=== PATIENT | female | born 1965 | race Caucasian/White ===

== ENCOUNTER 2017-02-14 04:15 | Inpatient (IN) | payer OTHER ==
[~2017-02-14] VITALS: Ht 172.7 cm; Wt 71.2 kg
[2017-02-14] MEDS ORDERED: MIRALAX17 G1 PO (12:40)
[2017-02-14] MEDS ORDERED: ASPIRIN EC325 M2 PO (12:40)
[2017-02-14] MEDS ORDERED: PRILOSEC OTC20 M1 PO (12:40)
[2017-02-14] MEDS ORDERED: MS CONTIN15 M2 PO (12:40)
[2017-02-14] MEDS ORDERED: DILAUDID2 M1 PO (12:40)
[2017-02-14] MEDS ORDERED: COLACE100 M1 PO (12:40)
--- NOTE | 2017-02-14 12:44 | Patient Discharge Instructions ---
Discharge Instructions General Discharge Information You were seen/treated for: Right hip pain You had these procedures: Right total hip replacement Watch for these problems: Increasing pain, redness, warmth, swelling. Drainage of any type from incision. Inability to bear weight on right leg. Fever greater than 101.5. Do not soak the wound: Yes No bath, but you may shower: Yes Other wound care: Wound clean and dry Special Instructions: Incision: Dry dressing. May shower. No baths. No ointments of any kind. Ice as needed. Bowel regimen: Colace and or MiraLAX Weight-bearing as tolerated Follow-up with Dr. Sheehan in 6 weeks. Call office for fevers greater than 101.5, excessive drainage or inability to bear weight on operative extremity. Visiting nurse will change dressing. Diet Continue normal diet: Yes Recommended Diet: Regular Additional DIET Information: Weight-bear as tolerated Activity Full Activity/No Limits: No Activity Self Limited: Yes Pounds, do NOT lift more than: 10 Additional ACTIVITY Info: Weight-bear as tolerated Acute Coronary Syndrome Inclusion Criteria At DC or during hospital stay patient has or had the following: ACS DIAGNOSIS No Discharge Core Measures Meds if any: Prescribed or Continued at Discharge Meds if any: NOT Prescribed or Continued at Discharge Congestive Heart Failure Inclusion Criteria At DC or during hospital stay patient has or had the following: CHF DIAGNOSIS No Discharge Core Measures Meds if any: Prescribed or Continued at Discharge Meds if any: NOT Prescribed or Continued at Discharge Cerebrovascular accident Inclusion Criteria At DC or during hospital stay patient has or had the following: CVA/TIA Diagnosis No Discharge Core Measures Meds if any: Prescribed or Continued at Discharge Meds if any: NOT Prescribed or Continued at Discharge Venous thromboembolism Inclusion Criteria VTE Diagnosis No VTE Type NONE VTE Confirmed by (Test) NONE Discharge Core Measures - Per Current guidelines, there needs to be overlap - treatment for the first 5 days of Warfarin therapy. - If discharged on Warfarin prior to 5 days of - overlap therapy, the patient will need to be - assessed for post discharge needs including - *Post discharge parental anticoagulation - *Warfarin and/or parental anticoagulation education - *Follow up date to check INR post discharge At least 5 days overlap therapy as Inpatient No Meds if any: Prescribed or Continued at Discharge Note: Overlap Therapy is Warfarin and Anticoagulant Meds if any: NOT Prescribed or Continued at Discharge
--- NOTE | 2017-02-14 12:45 | Admission Core Measures ---
Admission Meds I reviewed the following Meds: Current Medications Sig/Yunior Start time Last Medication Dose Stop Time Status Admin Acetaminophen 975 MG ONCE 02/14 0000 NR (Tylenol) 02/14 2359 Cefazolin Sodium 2,000 MG ONCE 02/14 NR (Kefzol-Ancef Inj) 02/14 2359 Oxycodone HCl 10 MG ONCE 02/14 0000 NR (Roxicodone) 02/14 2359 Acute Coronary Syndrome Inclusion Criteria ACS Diagnosis No Inpatient Core Measures LDL Reminder: If No, please order W/I first 24hr of stay Congestive Heart Failure Inclusion Criteria CHF Diagnosis No Cerebrovascular accident Inclusion Criteria CVA/TIA Diagnosis No Inpatient Core Measures Bedside Swallow Eval Reminder: If BSE failed, place ST order Antithrombotic Reminder: Order Antithrombotic Medication by end of day 2 Antithrombotic Reminder: Document Reason Antithrombotic Not ordered by end of day 2 AFIB/Flutter Reminder: If Present, add to problem list AFIB/Flutter Reminder: Order Anticoag Medication for pts with AFIB/Flutter Atherosclerosis Reminder: If Present, add to problem list LDL Reminder: If No, please order W/I first 24hr of stay PT Order Reminder: If No, please order Venous thromboembolism Inpatient Core Measures VTE Risk Factors: Age > 40 [facility] d/t No contraindications No VTE Pharm Prophylaxis d/t No contraindications Inclusion Criteria - Per Current guidelines, there needs to be overlap - treatment for the first 5 days of Warfarin therapy. - Parenteral Anticoagulation (IV or SC) needs to be - given along with Warfarin therapy. VTE Diagnosis No VTE Type NONE VTE Confirmed by (Test) NONE Problem List As ranked by this Provider includes Assessment & Plan 1. Unilateral primary osteoarthritis, right hip HOME MEDS Home Med List Aspirin (Ecotrin*) 325 MG TABLET.DR 1 TAB PO BID ANTICOAGULATION Docusate Sodium (Colace) 100 MG CAPSULE 1 CAP PO BID CONSITPATION Hydromorphone HCl (Dilaudid) 2 MG TABLET 1-2 TAB PO Q4-6 PRN PAIN Morphine Sulfate (Ms Contin) 15 MG TABLET.ER 1 TAB PO BID PAIN Omeprazole Magnesium (Prilosec Otc) 20 MG TABLET.DR 1 TAB PO DAILY GI PROTECTION Polyethylene Glycol 3350 (Miralax) 17 GRAM POWD.PACK 1 PAC PO DAILY CONSTIPATION
--- NOTE | 2017-02-14 12:47 | Surgical Discharge Summary ---
Visit Information Visit Dates Admission Date: 02/14/17 Discharge Date: 02/15/2017 History of Present Illness Chief Complaint: Right hip pain secondary to unilateral primary osteoarthritis Surgical History Pertinent Surgical History: non-contributory Review of Systems: See H&P Hospital Course Course Attending Physician: PARUL FLAHERTY MD Primary Care Physician: JOSE OLVERA,KENNETH R [facility] Course: Patient was admitted to the hospital on 02/14/2017 for an elective right total hip replacement. She tolerated the procedure well. She was transferred to a general surgical floor. Her diet was advanced and tolerated. Her vital signs were stable and within normal limits. She voided spontaneously. Her pain was well controlled with oral pain medications. She was evaluated and treated by physical therapy. She was deemed appropriate for discharge. Allergies: Coded Allergies: No Known Allergies (02/13/17) Disposition Summary Disposition Principal Diagnosis: Right hip unilateral primary osteoarthritis Additional Diagnosis: None Discharge Disposition: home health services Discharge Instructions General Discharge Information Code Status: Full Code Patient's Diet: Regular, advance as tolerated Patient's Activity: Weight-bear as tolerated Follow-Up Instructions/Appts: Incision: Dry dressing. May shower. No baths. No ointments of any kind. Ice as needed. Bowel regimen: Colace and or MiraLAX Weight-bearing as tolerated Follow-up with Dr. Flaherty in 6 weeks. Call office for fevers greater than 101.5, excessive drainage or inability to bear weight on operative extremity. Visiting nurse will change dressing. Medications at Discharge Discharge Medications: Start taking the following new medications: Aspirin (Ecotrin*) 325 MG TABLET.DR 1 Tablet ORAL TWICE DAILY Qty = 60 No Refills Comments: Last Taken: 02/15/17 Time: 10:00 AM Docusate Sodium (Colace) 100 MG CAPSULE 1 Capsule ORAL TWICE DAILY Qty = 14 No Refills Instructions: DISCONTINUE USE IF YOU DEVELOP LOOSE STOOL OR DIARRHEA Comments: Last Taken: 02/15/17 Time: 10:00 AM Hydromorphone HCl (Dilaudid) 2 MG TABLET 1-2 Tablet ORAL EVERY 4-6 HOURS as needed for PAIN Qty = 36 No Refills Comments: Last Taken: 02/15/17 Time: 2:45 PM Polyethylene Glycol 3350 (Miralax) 17 GRAM POWD.PACK 1 Packet ORAL DAILY Qty = 7 No Refills Instructions: dissolve in water, DISCONTINUE USE IF YOU DEVELOP LOOSE STOOL OR DIARRHEA Comments: Last Taken: 02/15/17 Time: 10:00 AM Morphine Sulfate (Ms Contin) 15 MG TABLET.ER 1 Tablet ORAL TWICE DAILY Qty = 6 No Refills Comments: DID NOT RECEIVE IN HOSPITAL Omeprazole Magnesium (Prilosec Otc) 20 MG TABLET.DR 1 Tablet ORAL DAILY Qty = 30 No Refills Comments: Last Taken: 02/15/17 Time: 06:00 AM
--- NOTE | 2017-02-14 15:59 | NUR ---
PHYSICAL THERAPY: Pt is a 51 y/o F s/p R anterior FUAD 02/14/17. P.T. Called PACU regarding patient arrival to floor. At this time, patient is still in recovery room. Notified staff that Physical Therapy will be off the floor by patient's arrival; Pt to be evaluated in the A.M. Nursing to amb Pt w/ RW to bathroom or commode as appropriate for tolieting through the night.
--- NOTE | 2017-02-14 16:52 | Operative Report ---
Operative/Inv Procedure Report Surgery Date: 02/14/17 Name of Procedure: Right total hip replacement Pre-Operative Diagnosis: Primary right hip DJD Post-Operative Diagnosis: Same Estimated Blood Loss: 300 Surgeon/Stone Decorator: KRYSTINA OLVERA,PARUL Gibson Anesthesia: block Operative/Procedure Note Note: Description of Procedure: The patient was taken to the operating room and positively identified. After induction of spinal anesthesia and administration of appropriate pre-operative antibiotics, the patient was positioned supine on the operating room table and all bony prominences were well padded. After performing a surgical timeout, the right lower extremity was prepped and draped in the usual sterile fashion. A direct anterior approach was made to the right hip. The incision was carried sharply through superficial soft tissues to the level of the fascia. Meticulous hemostasis was maintained with Bovie electocautery. The fascia over the tensor fascia sherman muscle was opened sharply and the interval between the TFL and the sartorius was entered bluntly taking care to stay lateral to the lateral femoral cutaneous nerve. Retractors were placed around the femoral neck and the pericapsular fat was identified. The ascending branches of the lateral femoral circumflex vessels were identified and carefully coagulated. The pericapsular fat and anterior capsule were then resected. A napkin ring osteotomy was performed and the femoral head was removed without difficulty. Attention was then turned to the acetabulum. After appropriate placement of retractors, the acetabulum was exposed. Soft tissue was cleaned from the acetabular margin and notch. Overhanging osteophytes were removed and the teardrop was exposed. The acetabulum was then sequentially reamed to accept a 56 mm [place] Tritanium hemispherical solid back shell. This was impacted into place in the appropriate position and fitted with a 32 mm Trident X3 zero degree polyethylene insert. Attention was then turned to the femur. After performing the appropriate ligament releases, the proximal femur was exposed. It was then sequentially broached to accept a size 4 [place] Anato stem. This was trialed for leg length and stability. The trial component was removed and the final component was impacted into place. The trunnion was carefully cleaned and fit with a 32 mm, + 4 Biolox delta ceramic femoral head. The hip was reduced and put through a full range of motion and found to be stable. The articular space was then irrigated with sterile saline. The periarticular soft tissues were infilitrated with Marcaine. The fascial layer was closed with interrupted #1 vicryl suture and the skin was re-approximated with interrupted 2 -0 vicryl. The skin was closed with a running 3-0 V-Lock suture. Steri-strips and a sterile dressing were applied. The patient was awakened and taken to the recovery room in satisfactory condition.
--- NOTE | 2017-02-14 16:59 | RADIOLOGY REPORT ---
EXAMINATION: XR HIP, RIGHT CLINICAL INFORMATION: Status post right hip replacement. COMPARISON: None TECHNIQUE: Two views of the right hip. FINDINGS: Right hip arthroplasty is well positioned. Intact hardware. No suspicious periprosthetic abnormal lucency or acute fracture. Air within the soft tissues compatible with recent postoperative change. IMPRESSION: Recent right hip arthroplasty
--- NOTE | 2017-02-14 17:50 | PN- Orthopedic ---
Subjective Subjective: POST-OP NOTE: No complaints. Denies pain. Tolerating clears. No nausea. No shortness of breath. No chest pains. Denies dizziness. Due to void. Objective Vital Signs and I&Os Intake & Output 02/14 1600 02/14 0800 02/14 0000 02/13 1600 02/13 0800 02/13 0000 Intake Total Output Total Balance Patient 157 lb Weight pacu vitals reviewed / stable Physical Exam: General - alert & oriented x 3. comfortable. no acute distress. Lungs - clear bilaterally. no w/r/r. Cardiac - s1s2. reg. Abdomen - soft. nontender. Extremities - warm bilaterally. right thigh dressing c/d/i. no hematoma. calves soft and nontender b/l. nvi. Assessment/Plan Assessment/Plan This 51 year old white female is POD#0 s/p R THR advance diet as tolerated pain control as ordered asa 325mg bid roro-operative ancef x 2 doses PT eval in am d/c planning tomorrow once she clears stairs will d/w Core Measures/Miscellaneous Venous Thromboembolism VTE Risk Factors: Age > 40, Surgery VTE Contraindications: No Contraindications VTE Diagnosis: No VTE Type: NONE VTE Confirmed by (Test): NONE Beta Tia Is Beta Tia a Home Med? No Antibiotics Is Patient on Antibiotics? Yes If Yes: prophylaxis
[2017-02-14 18:17] VITALS: BP 110/76
[2017-02-14 20:01] VITALS: BP 116/78
--- NOTE | 2017-02-14 20:39 | NUR ---
LATE ENTRY: PATIENT ARRIVED TO FLOOR AT 1800 FROM PACU S/P R TOTAL HIP VS 99.0 70 18 110/76 96% ROOM AIR A&O, LCTA, NORMALLY INDEPENDENT, SKIN INTACT DSG TO R HIP, CDI, ICE TERRY IN PLACE, C/O PAIN 4/[address], TEDS STOCKINGS IN ROOM FOR DISCHARGE IV # 20 TO LH WITH D5 1/2 NS @ 75 ML/HR RUNNING PATIENT AMBULATED VERY SHORT DISTANCE WITH RW TO BSC, VERY WELL. PATIENT ORIENTED TO CALL ROSE AND ROOM. CONTINUE TO MONITOR
[2017-02-14 21:56] VITALS: BP 102/70
[2017-02-15 06:48] VITALS: BP 98/52
--- NOTE | 2017-02-15 08:05 | PN- Orthopedic ---
Subjective Subjective: Pt. has no complaints. She states she ambulated to commode Reports relatively comfortable , had IV morphine over night and PO Dilauadid this morning Objective Vital Signs and I&Os Vital Signs Date Time Temp Pulse Resp B/P Pulse O2 O2 Flow FiO2 Ox Delivery Rate 02/15 0648 97.9 67 20 98/52 98 Room Air 02/14 2156 98.0 68 20 102/70 97 02/14 2001 98.3 72 18 116/78 96 02/14 1817 99.0 70 18 110/76 96 Room Air Intake & Output 02/15 1600 02/15 0800 02/15 0000 02/14 1600 02/14 0800 02/14 0000 Intake Total 3145 Output Total 400 1250 Balance -400 1895 Intake, IV 2425 Intake, Oral 720 Output, Other 150 Output, Urine 400 1100 Patient 157 lb Weight Alert, appropriate, no distress Lungs clear bilat COR regular abdomen benign R hip dressing with Tegaderm over, minimal bruising, appropriately tender.No erythrema.Appropriate sensation over thigh and foot. Palpable distal pulses, warm/ perfused R calf without tenderness Assessment/Plan Assessment/Plan s/p R hip replacement for DJD POD #1 Pt. is progressing as expected R hip wound without infection God distal perfusion, no neurological deficits Pt. awaiting PT evaluation today. I anticipate d/c home today pending PT eval. Core Measures/Miscellaneous Venous Thromboembolism VTE Risk Factors: Age > 40, Surgery VTE Contraindications: No Contraindications VTE Diagnosis: No VTE Type: NONE VTE Confirmed by (Test): NONE Beta Tia Is Beta Tia a Home Med? No Antibiotics Is Patient on Antibiotics? Yes If Yes: prophylaxis
[2017-02-15 12:13] LABS: ABSOLUTE BASOPHIL COUNT 0 /CUMM (0.0-0.2); ABSOLUTE EOSINOPHIL COUNT 0.1 /CUMM (0.0-0.7); ABSOLUTE GRANULOCYTE CT 9.9 /CUMM (1.4-6.5); ABSOLUTE LYMPH COUNT 1.2 /CUMM (1.2-3.4); ABSOLUTE MONOCYTE COUNT 1.6 /CUMM (0.10-0.60); BASOPHIL % 0 % (0.0-2.0); EOSINOPHIL % 0.4 % (0-5); GRANULOCYTE % 77.7 % (42.2-75.2); HEMATOCRIT 34.1 % (37-47); MEAN CORPUSCULAR HGB 32.7 PG (27.0-31.0); MEAN CORPUSCULAR HGB CONC 33.7 G/DL (33.0-37.0); MEAN PLATELET VOLUME 7.2 FL (7.4-10.4); PLATELET COUNT 224 /CUMM (130-400); RBC DISTRIBUTION WIDTH 12.9 % (11.5-14.5); RED BLOOD CELL CT 3.51 /CUMM (4.20-5.40); WHITE BLOOD CELL COUNT 12.8 /CUMM (4.8-10.8)
[2017-02-15 14:39] VITALS: BP 91/63
== END 2017-02-15 17:00 | disposition home health service (06) | DRG 470 ==
LOC: ENRESERVDT → ENRESERVTM → SDA 04:15 → 2NB 18:02
PROVIDERS: Nurse Practitioner; ADMIT Orthopaedic Surgery
PROC: 0SR904A Replacement of Right Hip Joint with Ceramic on Polyethylene Synthetic Substitute, Uncemented, Open Approach (ICD-10-PCS; principal; 2017-02-14)
DX: M16.11 Unilateral primary osteoarthritis, right hip (principal)
CPT/HCPCS: 2NBSP; 73502-RT; 82436; 88304; 97116-GO; 97161-GP; 97530-GO; J0690; J0735; J2405; J2550; J7042